=== PATIENT | male | born 1950 | race Caucasian/White ===

== ENCOUNTER 2019-05-03 14:35 | Day surgery (SDC) | payer MEDICARE, OTHER, BC ==
[2019-05-03] MEDS ORDERED: PROPOFOL 40 ML (17:19)
[2019-05-03] MEDS ORDERED: FENTAnyl 50 MCG/ML VIAL (17:19)
[2019-05-03] MEDS ORDERED: LIDOCAINE 100 MG SYRINGE (17:19)
== END 2019-05-03 17:50 | disposition home or self-care (01) ==
LOC: GIL 14:35
DX: K29.50 Unspecified chronic gastritis without bleeding (principal)
CPT/HCPCS: 43239; 88305; 88312